=== PATIENT | male | born 1980 | race American Indian/Alaskan Native ===

== ENCOUNTER 2019-01-18 16:12 | Emergency (ER) | payer MEDICAID ==
[2019-01-18 17:16] LABS: Basophils % (Auto) 0.5 % (0.0-1.8); Eosinophils % (Auto) 0.2 % (0.0-4.3); Hematocrit 31.8 % (35.5-45.6); Hemoglobin 10.9 gm/dl (11.8-15.2); Lymphocytes % (Auto) 14.9 % (13.4-35.0); Mean Corpuscular HGB Conc 34 % (32-34); Mean Corpuscular Volume 91 fl (84-94); Monocytes # (Auto) 0.7 K/mm3 (0.0-0.8); Monocytes % (Auto) 10.7 % (0.0-7.3); Platelet Count 156 K/mm3 (140-440); Red Blood Count 3.49 M/mm3 (3.65-5.03)
[2019-01-18 17:27] LABS: BUN/Creatinine Ratio 14; Blood Urea Nitrogen 17 mg/dL (9-20); Calcium 9.5 mg/dL (8.4-10.2); Hemolysis Index 7
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
[2019-01-18] MEDS ORDERED: PROzac PO ONE (17:39)
[2019-01-18 19:11] LABS: Bacteria,Urine 1+ /HPF (Negative); Bilirubin,Urine NEG (Negative); Blood,Urine NEG (Negative); Color,Urine Yellow (Yellow); Mucus,Urine 2+ /HPF; Protein,Urine <15 mg/dL mg/dL (Negative); Urobilinogen,Urine < 2.0 mg/dL (<2.0)
[2019-01-18 19:18] LABS: Amphetamine Screen,Urine PRESUMPTIVE NEGATIVE; Benzodiazepines Screen,Urine PRESUMPTIVE NEGATIVE; Cannabinoid Screen,Urine PRESUMPTIVE NEGATIVE; Methadone Screen,Urine PRESUMPTIVE NEGATIVE; Opiate Screen,Urine PRESUMPTIVE NEGATIVE
[2019-01-18 20:01] LABS: Cocaine Screen,Urine PRESUMPTIVE POSITIVE
[2019-01-19 10:16] VITALS: BP 92/63
--- NOTE | 2019-01-19 10:46 | Consultation ---
History of Present Illness - Reason for Consult Consult date: 01/19/19 Reason for consult: Mental Health Evaluation Requesting physician: COCO SCHNEIDER - Chief Complaint Chief complaint: "I need to stop using drugs" - History of Present Psychiatric Illness 38 y.o. AA male who presented to Er for a mental health evaluation. Today the patient was calm and cooperative during the assessment. He stated that he has a hx of substance abuse along with depression. He stated that his mother do not like the fact that he uses drugs and drink (etoh). He stated that he is seen at [facility] for outpatient psy services. He acknowledged that he used cocaine and drink alcohol prior to coming the ER. He stated that he is aware of the medical issues that may occur when consuming excessive alcohol (etoh). Per collateral information from the patients's mother Ms Castaneda at [phone], she stated that her son have a substance abuse issue and would like for him to stop. She stated that she was concern about his behavior so she brought him to the ER. The patient denies SI/HI's, AVH's, and being depressed. He denies erratic sleep and a poor appetite. He stated that he plan to use the outpatient resources (psy/rehab) at [facility]. . Medications and Allergies Allergies Allergy/AdvReac Type Severity Reaction Status Date / Time No Known Allergies Allergy Verified 01/18/19 16:14 Home Medications Medication Instructions Recorded Confirmed Last Taken Type Benztropine [Cogentin] 1 mg PO BID #60 tablet 08/18/13 Unknown Rx Divalproex ER [Depakote ER] 500 mg PO QHS #30 tablet 08/18/13 Unknown Rx Mirtazapine [Remeron 15mg TAB] 15 mg PO QHS #30 tablet 08/18/13 Unknown Rx PARoxetine [Paxil] 20 mg PO DAILY #30 tablet 08/18/13 Unknown Rx risperiDONE [RisperiDONE] 2 mg PO QHS #30 tab.rapdis 08/18/13 Unknown Rx Amoxicillin [Trimox CAP] 500 mg PO Q8H 10 Days #30 capsule 10/05/18 Unknown Rx Chlorhexidine Mouthwash [Peridex] 15 ml MM BID #1 bottle 10/05/18 Unknown Rx Tramadol HCl [Ultram] 50 mg PO Q6H #12 tablet 10/05/18 Unknown Rx Past psychiatric history - Past Medical History Past Medical History: No medical history Past Surgical History: No surgical history - past Psychiatric treatment and history psychiatric treatment history: Hx of depression/alochol abuse per the patient. Denies a fam psy hx. - Social History Social history: lives with family Mental Status Exam - Vital signs Last Vital Signs Temp 97.7 F 01/19/19 10:15 Pulse 86 01/19/19 10:15 Resp 18 01/19/19 10:15 BP 92/63 01/19/19 10:15 Pulse Ox 99 01/19/19 10:15 - Exam Narrative exam: MSE: Appearance: calm, cooperative Behavior: regular eye contact Speech: regular rate and tone Mood: "okay" Affect: congruent o mood Thought Process: circumstantial Thought Content: denies SI/HI's and AVH's Motor Activity: ambulatory Cognition: A/O x3 Insight: fair Judgment: fair Results Result Diagrams: 01/18/19 17:00 01/18/19 17:00 Abnormal lab results 01/18/19 01/18/19 01/18/19 Range/Units 17:00 17:00 17:00 RBC 3.49 L (3.65-5.03) M/mm3 Hgb 10.9 L (11.8-15.2) gm/dl Hct 31.8 L (35.5-45.6) % RDW 13.0 L (13.2-15.2) % [place] % (Auto) 10.7 H (0.0-7.3) % Lymph # 1.0 L (1.2-5.4) K/mm3 Seg Neutrophils % 73.7 H (40.0-70.0) % Salicylates < 0.3 L (2.8-20.0) mg/dL Acetaminophen < 5.0 L (10.0-30.0) ug/mL Valproic Acid (50-100) ug/mL 01/18/19 Range/Units 17:00 RBC (3.65-5.03) M/mm3 Hgb (11.8-15.2) gm/dl Hct (35.5-45.6) % RDW (13.2-15.2) % [place] % (Auto) (0.0-7.3) % Lymph # (1.2-5.4) K/mm3 Seg Neutrophils % (40.0-70.0) % Salicylates (2.8-20.0) mg/dL Acetaminophen (10.0-30.0) ug/mL Valproic Acid 14.8 L (50-100) ug/mL All other labs normal. Assessment and Plan Assessment and plan: Impression: Hx of Depression. Alcohol Use DO. Substance Use DO (cocaine). Today the patient was calm and cooperative during the assessment. Recommendation/Plan: Discussed the importance to abstain from recreational drug use and alcohol consumption (etoh), he verbalized understanding. The patient has medication at home. Dispo: The patient can follow up with [facility] for outpatient psy/rehab services. Staffed with Dr. Kevlin Nicholson.
== END 2019-01-19 13:49 | disposition home or self-care (01) ==
LOC: ED 16:12
DX: F20.9 Schizophrenia, unspecified (principal); F31.9 Bipolar disorder, unspecified; F14.10 Cocaine abuse, uncomplicated; F12.10 Cannabis abuse, uncomplicated; F17.200 Nicotine dependence, unspecified, uncomplicated; Z79.899 Other long term (current) drug therapy; Z98.890 Other specified postprocedural states
CPT/HCPCS: 36415; 80048; 80164; 80307; 81001; 85025; 99284; G0480; 80320

== ENCOUNTER 2020-05-31 21:16 | Emergency (ER) | payer SELFPAY ==
[2020-05-31 23:52] VITALS: BP 121/69
== END 2020-05-31 23:49 | disposition left against medical advice (07) ==
LOC: ED 21:16
DX: R41.82 Altered mental status, unspecified (principal); Z53.21 Procedure and treatment not carried out due to patient leaving prior to being seen by health care provider

== ENCOUNTER 2020-06-01 09:47 | Emergency (ER) | payer SELFPAY | END 2020-06-01 12:00 | disposition left against medical advice (07) | LOC: ED 09:47 | DX: M79.604 Pain in right leg (principal); Z53.21 Procedure and treatment not carried out due to patient leaving prior to being seen by health care provider ==

== ENCOUNTER 2020-06-01 14:04 | Emergency (ER) | payer MEDICAID ==
[2020-06-01 14:15] VITALS: BP 120/41
--- NOTE | 2020-06-01 18:05 | Event Note ---
ED Screening Note Date of service: 06/01/20 Time: 18:04 ED Screening Note: Patient complains of dysuria and vaginal discharge This initial assessment/diagnostic orders/clinical plan/treatment(s) is/are subject to change based on patients health status, clinical progression and re- assessment by fellow clinical providers in the ED. Further treatment and workup at subsequent clinical providers discretion. Patient/guardian urged not to elope from the ED as their condition may be serious if not clinically assessed and managed. Initial orders include: UA Pelvic exam in ACC
[2020-06-01] MEDS ORDERED: HYDROcodone/ACETAMINOPHEN 5-325 MG TAB PO ONE (20:46)
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
--- NOTE | 2020-06-01 21:45 | XRay Report ---
RIGHT KNEE 4 VIEW(S) INDICATION / CLINICAL INFORMATION: right knee pain decreased mobility COMPARISON: None available. FINDINGS: BONES / JOINT(S): No acute fracture or subluxation. No significant arthritis. SOFT TISSUES: No significant abnormality. ADDITIONAL FINDINGS: None. Signer Name: Dario Akers MD Signed: 06/01/2020 9:44 PM Workstation Name: [id number]
== END 2020-06-02 01:30 | disposition home or self-care (01) ==
LOC: ED 14:04
DX: S86.911A Strain of unspecified muscle(s) and tendon(s) at lower leg level, right leg, initial encounter (principal); F25.0 Schizoaffective disorder, bipolar type; Z79.899 Other long term (current) drug therapy; X58.XXXA Exposure to other specified factors, initial encounter; Y93.89 Activity, other specified; Y92.89 Other specified places as the place of occurrence of the external cause; Y99.8 Other external cause status
CPT/HCPCS: 99283

== ENCOUNTER 2020-06-02 02:14 | Emergency (ER) | payer MEDICAID ==
[2020-06-02 05:46] LABS: Basophils % (Auto) 0.6 % (0.0-1.8); Eosinophils # (Auto) 0.2 K/mm3 (0.0-0.4); Eosinophils % (Auto) 4.3 % (0.0-4.3); Hematocrit 39.3 % (35.5-45.6); Hemoglobin 12.9 gm/dl (11.8-15.2); Lymphocytes # (Auto) 1.7 K/mm3 (1.2-5.4); Lymphocytes % (Auto) 35.9 % (13.4-35.0); Mean Corpuscular HGB Conc 33 % (32-34); Mean Corpuscular Volume 96 fl (84-94); Monocytes # (Auto) 0.5 K/mm3 (0.0-0.8); Platelet Count 299 K/mm3 (140-440); Red Blood Count 4.09 M/mm3 (3.65-5.03); Red Cell Distribution Width 12.6 % (13.2-15.2)
[2020-06-02 05:54] LABS: BUN/Creatinine Ratio 12; Blood Urea Nitrogen 12 mg/dL (9-20); Calcium 9.2 mg/dL (8.4-10.2); Hemolysis Index 6
[2020-06-02 10:22] VITALS: BP 111/73
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
== END 2020-06-02 17:47 | disposition home or self-care (01) ==
LOC: ED 02:14
DX: F25.0 Schizoaffective disorder, bipolar type (principal); F17.200 Nicotine dependence, unspecified, uncomplicated; Z98.890 Other specified postprocedural states; Z79.2 Long term (current) use of antibiotics; Z79.899 Other long term (current) drug therapy
CPT/HCPCS: 36415; 80048; 80320; 85025; G0480